=== PATIENT | male | born 1970 | race Caucasian/White ===

== ENCOUNTER → 2022-10-05 | Emergency (ER) | payer MEDICAID ==
[~2022-10-05] VITALS: Ht 170.2 cm; Wt 86.0 kg
[~2022-10-05] MED LIST: DIPHENHYDRAMINE 50MG/ML VIAL IM ONE; HALOPERIDOL LACTATE 5MG/ML VIAL IM ONE; LORAZEPAM 2MG/ML CPJ IM ONE; OLANZAPINE 10 MG/VIAL IM STA; OLANZAPINE 5MG TABLET ODT PO SCH
[2022-10-05 02:29] LABS: CLARITY URINE CLEAR (CLEAR); COLOR URINE YELLOW (YELLOW); KETONES URINE 2+ (NEGATIVE); LEUKOCYTE ESTERASE URINE NEGATIVE (NEGATIVE); NITRITE URINE NEGATIVE (NEGATIVE); OCCULT BLOOD URINE NEGATIVE (NEGATIVE); PH URINE 5.5 (4.5-8.0); PROTEIN URINE 2+ (NEGATIVE); SPECIFIC GRAVITY URINE 1.016 (1.005-1.030); UROBILINOGEN URINE 0.2 E.U./dL (0.2-1.0)
[2022-10-05 02:44] LABS: CHLORIDE 100 mEq/L (98-107)
[2022-10-05 02:53] LABS: *AMPHETAMINES SCREEN URINE PRESUMTIVE POSITIVE (NEGATIVE); *BARBITURATES SCREEN URINE NEGATIVE (NEGATIVE); *BENZODIAZEPINES SCREEN URINE NEGATIVE (NEGATIVE); *COCAINE SCREEN URINE NEGATIVE (NEGATIVE); CANNABINOID URINE SCREEN PRESUMTIVE POSITIVE (NEGATIVE); METHADONE URINE SCREEN NEGATIVE (NEGATIVE); OPIATES URINE SCREEN NEGATIVE (NEGATIVE); PHENCYCLIDINE URINE SCREEN NEGATIVE (NEGATIVE)
[2022-10-05 02:59] LABS: ETHANOL BLOOD < 10 mg/dL
[2022-10-05 03:18] LABS: BASOPHILS % 0.6 % (0.0-2.0); EOSINOPHILS % 1.7 % (0.0-5.0); HEMATOCRIT. 46.3 % (42.0-52.0); HEMOGLOBIN. 15.8 g/dL (14.0-18.0); LYMPHOCYTES % 18.1 % (20.0-50.0); MEAN CORPUSCULAR HEMOGLOBIN 29.6 pg (28.0-32.0); MEAN CORPUSCULAR VOLUME 86.7 fL (80.0-94.0); MEAN PLATELET VOLUME 7.9 fl (7.4-10.4); MONOCYTES % 10.4 % (2.0-8.0); NEUTROPHILS % 69.2 % (40.0-76.0); PLATELET 342 x1000/uL (130-400); RED BLOOD CELL COUNT 5.34 mill/uL (4.7-6.1); RED CELL DISTRIBUTION WIDTH 13.1 % (11.6-14.6)
[2022-10-05] MEDS: OLANZAPINE 5MG TABLET ODT PO SCH (18:11)
[2022-10-06] MEDS: OLANZAPINE 5MG TABLET ODT PO SCH ×2 (09:31→17:00)
[2022-10-06 21:22] VITALS: BP 122/88
== END ==
LOC: ER 00:25
DX: F23 Brief psychotic disorder (principal); E11.9 Type 2 diabetes mellitus without complications; I10 Essential (primary) hypertension; F17.200 Nicotine dependence, unspecified, uncomplicated; F12.10 Cannabis abuse, uncomplicated; Z20.822 Contact with and (suspected) exposure to COVID-19
CPT/HCPCS: 36415; 70450; 80053; 80305; 80307; 80320; 80329; 81003; 84443; 85025; 87426; 93005; 99285; C9803; 96372; J1200; J1630; J2060; G0480

== ENCOUNTER 2022-11-02 03:39 | Emergency (ER) | payer MEDICAID ==
[~2022-11-02] VITALS: Ht 177.8 cm; Wt 100.0 kg
[2022-11-02 03:44] VITALS: BP 153/96
[2022-11-02 05:07] LABS: BASOPHILS % 0.2 % (0.0-2.0); EOSINOPHILS % 0.3 % (0.0-5.0); HEMATOCRIT. 47.6 % (42.0-52.0); HEMOGLOBIN. 16.1 g/dL (14.0-18.0); LYMPHOCYTES % 9.7 % (20.0-50.0); MEAN CORPUSCULAR HEMOGLOBIN 29.3 pg (28.0-32.0); MEAN CORPUSCULAR VOLUME 86.9 fL (80.0-94.0); MEAN PLATELET VOLUME 8.4 fl (7.4-10.4); MONOCYTES % 7.9 % (2.0-8.0); NEUTROPHILS % 81.9 % (40.0-76.0); PLATELET 317 x1000/uL (130-400); RED BLOOD CELL COUNT 5.48 mill/uL (4.7-6.1); RED CELL DISTRIBUTION WIDTH 13.3 % (11.6-14.6)
[2022-11-02 05:23] LABS: CHLORIDE 98 mEq/L (98-107)
[2022-11-02 05:32] LABS: ETHANOL BLOOD < 10 mg/dL
[2022-11-02 05:38] LABS: BETA HYDROXYBUTYRATE 1.9 mMol/L (0.0-0.3)
== END 2022-11-02 06:00 | disposition home or self-care (01) ==
LOC: ER 03:39
DX: E11.65 Type 2 diabetes mellitus with hyperglycemia (principal); I10 Essential (primary) hypertension; F12.10 Cannabis abuse, uncomplicated
CPT/HCPCS: 36415; 80053; 80307; 80320; 80329; 82010; 85025; 99283; G0480

== ENCOUNTER 2022-11-02 15:40 | Emergency (ER) | payer MEDICAID ==
[~2022-11-02] VITALS: Ht 175.3 cm; Wt 91.0 kg
[2022-11-02 15:42] VITALS: BP 178/104
== END 2022-11-02 15:51 | disposition left against medical advice (07) ==
LOC: ER 15:40
DX: Z53.21 Procedure and treatment not carried out due to patient leaving prior to being seen by health care provider (principal)
CPT/HCPCS: 99281

== ENCOUNTER 2022-11-02 16:29 | Emergency (ER) | payer MEDICAID ==
[~2022-11-02] VITALS: Ht 175.3 cm; Wt 104.0 kg
[2022-11-02 16:50] VITALS: BP 180/96
== END 2022-11-02 19:35 | disposition home or self-care (01) ==
LOC: ER 16:29
DX: E11.65 Type 2 diabetes mellitus with hyperglycemia (principal); I10 Essential (primary) hypertension; F12.90 Cannabis use, unspecified, uncomplicated; Z79.4 Long term (current) use of insulin
CPT/HCPCS: 99281